=== PATIENT | female | born 1990 | race African-American/Black ===

== ENCOUNTER 2016-07-02 18:12 | Emergency (ER) | payer OTHER ==
[~2016-07-02] VITALS: Ht 162.6 cm; Wt 56.8 kg
[~2016-07-02 18:12] MED LIST: MEDR150D9 IM
[2016-07-02] MEDS ORDERED: METHOCARBAMOL 500 MG TABLET PO ONE (19:30)
[2016-07-02] MEDS ORDERED: TraMADol HCL 50 MG TABLET PO ONE (19:30)
[2016-07-02 19:52] VITALS: BP 125/85
== END 2016-07-02 19:54 | disposition home or self-care (01) ==
LOC: EDBD 18:13 → EMS 18:13
DX: S16.1XXA Strain of muscle, fascia and tendon at neck level, initial encounter (principal); F17.210 Nicotine dependence, cigarettes, uncomplicated; V43.52XA Car driver injured in collision with other type car in traffic accident, initial encounter; Y93.89 Activity, other specified; Y92.89 Other specified places as the place of occurrence of the external cause; Y99.8 Other external cause status
CPT/HCPCS: 81025; 99282; 99283